=== PATIENT | female | born 1965 | race Caucasian/White ===

== ENCOUNTER 2017-11-21 14:03 | Emergency (ER) | payer OTHER ==
[2017-11-21 14:24] VITALS: BP 134/53
--- NOTE | 2017-11-21 15:18 | UC ---
Throat Pain/Nasal Seven HPI - HPI Summary HPI Summary: 52 yo Wf c/o sire throat on left side with associated LN swelling in the neck since last night. Denies f/c/cough or nasal congestion - History of Current Complaint Chief Complaint: UCGeneralIllness Stated Complaint: THROAT COMPLAINT Time Seen by Provider: 11/21/17 14:35 Hx Obtained From: Patient Onset/Duration: Sudden Onset Severity: Moderate Associated Signs & Symptoms: Positive: Dysphagia. Negative: FB Sensation, Drooling, Wheezing, Hoarseness, Sinus Discomfort, Nasal Discharge, Fever, Vomiting - Allergies/Home Medications Allergies/Adverse Reactions: Allergies Allergy/AdvReac Type Severity Reaction Status Date / Time Penicillins Allergy Severe Rash Verified 11/21/17 14:24 Latex Allergy Unknown Rash Verified 11/21/17 14:24 Cat Hair Extract Allergy Wheezing Verified 11/21/17 14:24 Enviromental Allergy Wheezing Uncoded 11/21/17 14:24 Home Medications: Home Medications Cranberry (Vaccinium Macrocarp [Cranberry] 1 tab PO DAILY 11/21/17 [History Confirmed 11/21/17] Fexofenadine HCl [Allergy Relief] 1 tab PO DAILY 11/21/17 [History Confirmed 01/07] Losartan TAB* [Cozaar TAB*] 50 mg PO DAILY 11/21/17 [History Confirmed 11/21/17] PMH/Surg Hx/FS Hx/Imm Hx - Surgical History Surgical History: Yes Surgery Procedure, Year, and Place: 1975 RT HIP PINNING 4 PINS ( DISLOCATION) [facility]. 1976 RT HIP 4 PIN REMOVALS [facility]. 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 2012 RIGHT CARPAL TUNNEL, [facility]. LEFT THUMB TRIGGER RELEASE. Left ring/middle finger trigger relief. 1993-D&C - Social History Alcohol Use: Rare Substance Use Type: None Smoking Status (MU): Never Smoked Tobacco - Immunization History Most Recent Influenza Vaccination: Fall 2016 Most Recent Pneumonia Vaccination: Fall 2016 Review of Systems Constitutional: Negative Skin: Negative Eyes: Negative ENT: Sore Throat Respiratory: Negative Cardiovascular: Negative Gastrointestinal: Negative Genitourinary: Negative Motor: Negative Neurovascular: Negative Musculoskeletal: Negative Neurological: Negative Psychological: Negative All Other Systems Reviewed And Are Negative: Yes Physical Exam Triage Information Reviewed: Yes Vital Signs: Initial Vital Signs Temp 36.4 C 11/21/17 14:20 Pulse 70 11/21/17 14:20 Resp 18 11/21/17 14:20 BP 134/53 11/21/17 14:20 Pulse Ox 97 11/21/17 14:20 Eye Exam: Normal ENT: Positive: Hearing grossly normal, Pharyngeal erythema, TMs normal, Uvula midline. Negative: Nasal congestion, Nasal drainage, Tonsillar swelling, Tonsillar exudate Dental Exam: Normal Dental: Positive: Cervical Lymphadenopathy Neck: Positive: Tenderness @, Enlarged Nodes @ - on left >right Respiratory Exam: Normal Respiratory: Positive: Lungs clear Cardiovascular Exam: Normal Cardiovascular: Positive: RRR Abdominal Exam: Normal Musculoskeletal Exam: Normal Neurological Exam: Normal Psychological Exam: Normal Skin Exam: Normal Throat Pain/Nasal Course/Dx - Course Assessment/Plan: rapid strep negative, likely viral in etiology, salt gargling BID, supportive tx - Differential Dx/Diagnosis Provider Diagnoses: Pharyngitis Discharge - Discharge Plan Condition: Stable Disposition: HOME Patient Education Materials: Pharyngitis (ED) Referrals: Sharon Galvan MD [Primary Care Provider] - Additional Instructions: as tolerated, supportive tx and salt gargling for viral pharyngitis
== END 2017-11-21 15:30 | disposition home or self-care (01) ==
LOC: UCEAST 14:03
DX: J02.9 Acute pharyngitis, unspecified (principal); Z88.0 Allergy status to penicillin; Z91.040 Latex allergy status; Z91.048 Other nonmedicinal substance allergy status
CPT/HCPCS: 87651; 99211; G0463

== ENCOUNTER 2018-03-13 14:33 | Emergency (ER) | payer OTHER ==
[2018-03-13 14:53] VITALS: BP 130/75
--- NOTE | 2018-03-13 15:34 | UC ---
Cheko Brooks Gabriel, scribed for Yehuda Hou MD on 03/13/18 at 1509 . General HPI - HPI Summary HPI Summary: This patient is a 53 year old F presenting to [facility] accompanied by her with a chief complaint of a strange sensation in her throat that began yesterday. She describes it as feeling tight and is making difficult to eat due to trouble swallowing. Although she reports difficulty swallowing she has no trouble drinking water. Along with this she has been having an intermittent shooting GUERRERO that is near her left occiput. The patient rates the pain 10/10 in severity. Patient reports weakness and fatigue. Patient denies numbness. She states she has had similar symptoms due to her allergies and was recently around smoke and cat hair, both which she is allergic to. Last night the patient began have CP located near her left axilla this pain lasted for several hours but was not accompanied by any nausea, SOB, dizziness, or diaphoresis. She states she used a heating pad that alleviated the pain. - History of Current Complaint Chief Complaint: UCRespiratory Stated Complaint: SORE THROAT PAIN IN BACK OF HEAD PAIN UNDER ARM Time Seen by Provider: 03/13/18 14:48 Hx Obtained From: Patient Onset/Duration: Lasting Days, Still Present Timing: Constant Onset Severity: Severe Current Severity: Severe Pain Intensity: 10 Pain Location at: left occiput and throat Associated Signs & Symptoms: Positive: Other - left axilla pain - Allergy/Home Medications Allergies/Adverse Reactions: Allergies Allergy/AdvReac Type Severity Reaction Status Date / Time latex Allergy Rash Verified 03/13/18 15:02 Penicillins Allergy Rash Verified 03/13/18 15:02 cat Allergy Wheezing Uncoded 03/13/18 15:02 Enviromental Allergy Wheezing Uncoded 03/13/18 14:54 environmental Allergy Wheezing Uncoded 03/13/18 15:02 Home Medications: Home Medications Cetirizine* [ZyrTEC 10 MG TAB*] 03/13/18 [History] PMH/Surg Hx/FS Hx/Imm Hx Cardiovascular History: Hypertension Respiratory History: Asthma - Surgical History Surgical History: Yes Surgery Procedure, Year, and Place: 1975 RT HIP PINNING 4 PINS ( DISLOCATION) [facility]. 1976 RT HIP 4 PIN REMOVALS [facility]. 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 2013 RIGHT CARPAL TUNNEL, [facility]. LEFT THUMB TRIGGER RELEASE. Left ring/middle finger trigger relief. 1993-D&C - Family History Known Family History: Positive: Other - mother had a CVA - Social History Alcohol Use: Rare Substance Use Type: None Smoking Status (MU): Light Every Day Tobacco Smoker - Immunization History Most Recent Influenza Vaccination: Fall 2016 Most Recent Pneumonia Vaccination: Fall 2016 Review of Systems Constitutional: Fatigue ENT: Sore Throat - see HPI Cardiovascular: Chest Pain - near left axilla Neurological: Weakness All Other Systems Reviewed And Are Negative: Yes Physical Exam - Summary Physical Exam Summary: General: well-appearing, no pain distress Skin: warm, color reflects adequate perfusion, dry, no rash Head: normal, there is no TTP over the left occipital nerve Eyes: EOMI, FANNY ENT: normal, Posterior pharynx is benign Neck: supple, nontender, there is mild swelling over the left neck Respiratory: CTA, breath sounds present Cardiovascular: RRR Abdomen: soft, nontender Bowel: present Musculoskeletal: normal, strength/ROM intact Neurological: normal, sensory/motor intact, A&O x3 Psychological: affect/mood appropriate Triage Information Reviewed: Yes Vital Signs: Initial Vital Signs Temp 99.1 F 03/13/18 14:44 Pulse 91 03/13/18 14:44 Resp 18 03/13/18 14:44 BP 130/75 03/13/18 14:44 Pulse Ox 97 03/13/18 14:44 Vital Signs Reviewed: Yes Diagnostics - EKG Cardiac Rate: NL - done at 1514 Cardiac Rhythm: Sinus: Normal - at 86 BPM Ectopy: None ST Segment: Normal Course/Dx - Course Course Of Treatment: Medications reviewed. Allergies noted. I SUSPECT THE PATIENT WILL NEED A MORE EXTENSIVE MEDICAL EVALUATION THAN IS AVAILABLE HERE IN OUR CLINIC. I RECOMMENDED EVALUATION IN THE ED, THE PATIENT AND HER AGREE. THEY DECINE AMBULANCE TRANSPORT, WILL GO BY POV. I DID NOT SEE ANY ISCHEMIC CHANGES ON THE EKG. DISCUSSED WITH THE ED CHARGE NURSE. - Differential Dx - Multi-Symptom Provider Diagnoses: LEFT CHEST, NECK AND HEAD PAIN Discharge - Sign-Out/Discharge Documenting (check all that apply): Discharge/Admit/Transfer - Discharge Plan Condition: Stable Disposition: HOME Patient Education Materials: Chest Pain (ED), Acute Headache (ED), Neck Pain ( ED) Referrals: Sharon Galvan MD [Primary Care Provider] - Additional Instructions: GO DIRECTLY TO THE EMERGENCY DEPARTMENT FOR FURTHER EVALUATION OF YOUR CHEST, HEAD AND NECK PAIN. - Billing Disposition and Condition Condition: STABLE Disposition: HOME The documentation as recorded by the Cheko pnio Gabriel accurately reflects the service I personally performed and the decisions made by me, Yehuda Hou MD.
== END 2018-03-13 15:30 | disposition home or self-care (01) ==
LOC: UCEAST 14:33
DX: R07.9 Chest pain, unspecified (principal); M54.2 Cervicalgia; R51 Headache; F17.200 Nicotine dependence, unspecified, uncomplicated; Z88.0 Allergy status to penicillin
CPT/HCPCS: 93005; 99211; G0463

== ENCOUNTER 2018-03-13 15:55 | Observation (INO) | payer OTHER ==
[2018-03-13] MEDS ORDERED: Ibuprofen TAB* 600 MG PO ONE (17:15)
[2018-03-13] MEDS ORDERED: Albuterol/Ipratropium NEB.SOL* Albuterol 2.5 MG/Ipratropium 0.5 MG 3 ML INH ONE (17:15)
[2018-03-13] MEDS ORDERED: Ondansetron INJ* 2 MG/ML VIAL IV ONE (18:27)
[2018-03-13] MEDS ORDERED: Morphine VIAL* 4 MG/ML VIAL (1 ml vial) IV ONE (18:27)
[2018-03-13] MEDS ORDERED: NS 0.9% 1000 ML* 1,000 ML IV ONE ×2 (18:27→19:37)
[2018-03-13] MEDS ORDERED: Levofloxacin 750 MG IVPREMIX(* 750 MG/150 ML BAG IVPB ONE (18:27)
[2018-03-13 18:52] LABS: ABS Basophils 0.1 10^3/ul (0-0.2); ABS Eosinophils 0 10^3/ul (0-0.6); ABS Lymphocytes 1.4 10^3/ul (1.0-4.8); ABS Monocytes 1.2 10^3/ul (0-0.8); ABS Neutrophils 13.6 10^3/ul (1.5-7.7); ABS Nucleated RBC 0 10^3/ul; Eosinophil % 0.1 % (0-6); Hematocrit 38 % (35-47); Hemoglobin 13.2 g/dl (12.0-16.0); Lymphocyte % 8.6 % (25-47); Mean Corpuscular HGB Conc 35 g/dl (31-36); Mean Corpuscular Hemoglobin 31 pg (27-31); Mean Corpuscular Volume 90 fL (80-97); Mean Platelet Volume 8.4 um3 (7.4-10.4); Nucleated Red Blood Cells % 0; Platelet Count 242 10^3/ul (150-450); Red Blood Count 4.26 10^6/ul (4.0-5.4); Red Cell Distribution Width 12 % (10.5-15); White Blood Count 16.2 10^3/ul (3.5-10.8)
--- NOTE | 2018-03-13 19:14 | RAD ---
Indication: Left-sided chest pain. Comparison is made with previous exam dated November 08, 2015. 2 views of the chest including dual energy PA views demonstrates left basilar atelectasis with suggestion of left basilar airspace disease. This may represent pneumonia and was not present on November 08, 2015. Right lung field is clear. IMPRESSION: There may be early pneumonia in the left base.
[2018-03-13 19:15] LABS: EGFR Non-African American 88.7 (>60)
--- NOTE | 2018-03-13 19:33 | ED ---
Joe Brooks Stephanie, scribed for Elliott Salmeron MD on 03/13/18 at 1740 . HPI Chest Pain - HPI Summary HPI Summary: The pt is a 53 y/o F presenting to the ED with c/o CP that began this morning. The CP is located at the L lateral chest. Symptoms include post-nasal drip and pain at the posterior region of the head. The pt denies cough and sinus pain. The pt denies radiation of the pain. The pt was at convenient care yesterday with concern with throat pain and trouble swallowing. The pt reports recent illness on 03/11/18. - History of Current Complaint Chief Complaint: EDChestPainROMI Time Seen by Provider: 03/13/18 17:30 Hx Obtained From: Patient Onset/Duration: Started Hours Ago, Still Present Timing: Constant Current Severity: Moderate Pain Intensity: 10 Pain Scale Used: 0-10 Numeric Chest Pain Location: Left Lateral Chest Pain Radiates: No Aggravating Factor(s): Nothing Alleviating Factor(s): Nothing Associated Signs and Symptoms: Positive: Chest Pain, Other: - sore throat, dysphagia - Allergy/Home Medications Allergies/Adverse Reactions: Allergies Allergy/AdvReac Type Severity Reaction Status Date / Time latex Allergy Rash Verified 03/13/18 16:13 Penicillins Allergy Rash Verified 03/13/18 16:13 cat Allergy Wheezing Uncoded 03/13/18 16:13 Enviromental Allergy Wheezing Uncoded 03/13/18 16:13 environmental Allergy Wheezing Uncoded 03/13/18 16:13 Home Medications: Home Medications Cranberry Fruit [Cranberry] 400 mg PO DAILY 03/13/18 [History Confirmed 03/13/18 ] PMH/Surg Hx/FS Hx/Imm Hx Cardiovascular History: Reports: Hx Hypertension - DAILY MEDS Denies: Other Cardiovascular Problems/Disorders Respiratory History: Reports: Hx Asthma GI History: Reports: Hx Irritable Bowel - DIARRHEA OFTEN Musculoskeletal History: Reports: Hx Arthritis - RT HIP Sensory History: Reports: Hx Contacts or Glasses - GLASSES INST GIVEN Denies: Hx Hearing Aid Opthamlomology History: Reports: Hx Contacts or Glasses - GLASSES INST GIVEN - Surgical History Surgery Procedure, Year, and Place: 1975 RT HIP PINNING 4 PINS ( DISLOCATION) [facility]. 1976 RT HIP 4 PIN REMOVALS [facility]. 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 2013 RIGHT CARPAL TUNNEL, [facility]. LEFT THUMB TRIGGER RELEASE. Left ring/middle finger trigger relief. 1993-D&C Hx Anesthesia Reactions: Yes - AFTER D/C MUSCLES STIFF AND TIGHT AFTER DISCHARGE COULDN'T MOVE Infectious Disease History: No Infectious Disease History: Denies: Traveled Outside the [place] in Last 30 Days - Family History Known Family History: Positive: Other - mother had a CVA Negative: Renal Disease - Social History Occupation: Unemployed Lives: With Family Alcohol Use: Rare Hx Substance Use: No Substance Use Type: Reports: None Hx Tobacco Use: Yes Smoking Status (MU): Light Every Day Tobacco Smoker Review of Systems ENT: Negative - sinus pain Positive: Sore Throat, Other - post-nasal drip, difficulty swallowing Positive: Chest Pain Negative: Cough Positive: Other - pain at the posterior region of the head All Other Systems Reviewed And Are Negative: Yes Physical Exam - Summary Physical Exam Summary: Appearance: Well appearing, no pain distress Skin: warm, dry, reflects adequate perfusion Head/face: lips dry Eyes: EOMI, FANNY ENT: mucus membranes tacky Neck: supple, non-tender Respiratory: diminished lung sounds with crackles in L base Cardiovascular: RRR, pulses symmetrical Abdomen: non-tender, soft Bowel Sounds: present Musculoskeletal: normal, strength/ROM intact Neuro: normal, sensory motor intact, A&Ox3 Triage Information Reviewed: Yes Vital Signs On Initial Exam: Initial Vitals Temp Pulse Resp BP Pulse Ox 100.9 F 91 18 140/55 96 03/13/18 16:08 03/13/18 16:08 03/13/18 16:08 03/13/18 16:08 03/13/18 16:08 Vital Signs Reviewed: Yes Diagnostics - Vital Signs Vital Signs Temp Pulse Resp BP Pulse Ox 03/13/18 16:08 100.9 F 91 18 140/55 96 - Laboratory Lab Results: Lab Results 03/13/18 03/13/18 03/13/18 Range/Units 18:41 18:41 18:41 WBC 16.2 H (3.5-10.8) 10^3/ul RBC 4.26 (4.0-5.4) 10^6/ul Hgb 13.2 (12.0-16.0) g/dl Hct 38 (35-47) % MCV 90 (80-97) fL MCH 31 (27-31) pg MCHC 35 (31-36) g/dl RDW 12 (10.5-15) % Plt Count 242 (150-450) 10^3/ul MPV 8.4 (7.4-10.4) um3 Neut % (Auto) 83.9 H (38-83) % Lymph % (Auto) 8.6 L (25-47) % Hemphill % (Auto) 7.1 H (0-7) % Eos % (Auto) 0.1 (0-6) % Baso % (Auto) 0.3 (0-2) % Absolute Neuts (auto) 13.6 H (1.5-7.7) 10^3/ul Absolute Lymphs (auto) 1.4 (1.0-4.8) 10^3/ul Absolute Monos (auto) 1.2 H (0-0.8) 10^3/ul Absolute Eos (auto) 0 (0-0.6) 10^3/ul Absolute Basos (auto) 0.1 (0-0.2) 10^3/ul Absolute Nucleated RBC 0 10^3/ul Nucleated RBC % 0 Sodium 136 L (139-145) mmol/L Potassium 3.6 (3.5-5.0) mmol/L Chloride 98 L (101-111) mmol/L Carbon Dioxide 25 (22-32) mmol/L Anion Gap 13 H (2-11) mmol/L BUN 17 (6-24) mg/dL Creatinine 0.69 (0.51-0.95) mg/dL Est GFR ( Amer) 114.0 (>60) Est GFR (Non-Af Amer) 88.7 (>60) BUN/Creatinine Ratio 24.6 H (8-20) Glucose 166 H (70-100) mg/dL Lactic Acid 1.9 (0.5-2.0) mmol/L Calcium 9.8 (8.6-10.3) mg/dL Total Bilirubin 0.90 (0.2-1.0) mg/dL AST 14 (13-39) U/L ALT 20 (7-52) U/L Alkaline Phosphatase 92 (34-104) U/L Total Protein 7.8 (6.4-8.9) g/dL Albumin 4.3 (3.2-5.2) g/dL Globulin 3.5 (2-4) g/dL Albumin/Globulin Ratio 1.2 (1-3) Result Diagrams: 03/13/18 18:41 03/13/18 18:41 Lab Statement: Any lab studies that have been ordered have been reviewed, and results considered in the medical decision making process. - Radiology CXR Xray Interpretation: Positive (See Comments) Radiology Interpretation Completed By: ED Physician - L basilar PNA - EKG 15:54 Cardiac Rate: NL EKG Rhythm: Sinus Rhythm - [address] Segment: Normal Ectopy: None Re-Evaluation - Re-Evaluation First Eval Re-Evaluation Time: 18:26 Change: Unchanged - 78% when ambulating, HR 130 Chest Pain Course/Dx - Course Course Of Treatment: Patient with crackles in the left base, left-sided chest pain and hypoxia. She was walked about the ER after confirming x-ray showing left basilar infiltrate. During the walking oxygen saturation study she dropped to saturation of 78%. She was hydrated, given IV antibiotics and admission was planned. Ordered blood cell count is elevated but lactate is not. Admit For further. - Chest Pain Differential Diagnosis/HQI/PQRI: Acute TN, Angina, GI Disease, Lower Respiratory Infection, Pulmonary Edema - Diagnoses Provider Diagnoses: Hypoxia, Left lower lobe pneumonia - Provider Notifications Discussed Care Of Patient With: Saeed Jackson - will evaluate in the ER and admit Discharge - Sign-Out/Discharge Documenting (check all that apply): Discharge/Admit/Transfer - admit - Discharge Plan Condition: Fair Disposition: ADMITTED TO [facility] Referrals: Sharon Galvan MD [Primary Care Provider] - - Billing Disposition and Condition Condition: FAIR Disposition[place] [facility] The documentation as recorded by the Joe pino Stephanie accurately reflects the service I personally performed and the decisions made by , Elliott Salmeron MD.
[2018-03-13] MEDS ORDERED: Albuterol 2.5 MG/3 ML NEB.SOL* (0.083%) INH PRN (19:37)
[2018-03-13] MEDS ORDERED: NS 0.9% 1000 ML* 1,000 ML IV SCH (19:45)
[2018-03-13] MEDS ORDERED: Levofloxacin 750 MG IVPREMIX(* 0 MG/0 ML BAG ONE (19:48)
[2018-03-13] MEDS ORDERED: Iohexol 350* (CONTRAST) 500 ML MDV IV ONE (19:50)
--- NOTE | 2018-03-13 20:40 | RAD ---
Indication: Shortness of breath, chest pain. Contrast: Administered 65.3 ml of OMNIPAQUE 350 mg/ml CTA of the chest was performed after IV contrast administration. Coronal and sagittal reconstructed images were obtained. Pulmonary arterial tree is well opacified. There are no filling defects present to suggest pulmonary emboli. Thoracic aorta demonstrates no aneurysmal dilatation or aortic dissection. There are multiple pulmonary nodules throughout both lung bloom of varying size. Findings are suspicious for metastatic disease. There is left lower lobe consolidation noted. There is a mass adjacent to the left lobe of the thyroid. Thyroid carcinoma is not excluded. No mediastinal or hilar adenopathy is noted. No pericardial effusion is noted. The visualized abdominal organs are unremarkable. The bony structures are unremarkable. IMPRESSION: Innumerable pulmonary nodules consistent with pulmonary metastatic disease. No definite evidence of pulmonary embolus is noted. There is ill-defined mass adjacent to the left lobe of the thyroid. This measures up to 2.5 cm.
[2018-03-13] MEDS: Mometasone/Formoter 200/5 MDI INH SCH (21:13)
--- NOTE | 2018-03-13 21:16 | HP ---
CC: Dr. Galvan* HISTORY AND PHYSICAL: DATE OF ADMISSION: 03/13/18 PRIMARY CARE PROVIDER: Dr. Galvan. ATTENDING PHYSICIAN WHILE IN THE HOSPITAL: Darvin Fernandez MD* (report dictated by Saeed Jackson NP). CHIEF COMPLAINT: 1. Chest pain. 2. Shortness of breath. HISTORY OF PRESENT ILLNESS: Mrs. You is a 53-year-old female patient. She carries a history of seasonal allergies. She carries a history of hypertension , also carries a history of asthma and arthritis. She comes into the ED today. She states that last couple of days, the patient has been having difficulty particularly in the last 24 hours with pain in her left chest, worse with taking a deep breath. She states it has been a sharp, stabbing pain, it has been constant. She states she has been splinting. She has also noted that her throat has been sore. It hurt to swallow yesterday. She also admitted to having low grade fever here today. She initially went to Urgent Care, said her throat feels much better today. It is also no longer sore, but this chest pain persisted. She is having pain in the back of her head. She denied any nausea or vomiting. She denied having any diarrhea. She said she initially went to Urgent Care and she was transferred to [facility] for further evaluation due to the chest pain. She was evaluated here. Ultimately, it was found that she was tachycardic, she was hypoxic with ambulation, and there was a concern for pneumonia. So, we were asked to evaluate for admission based on chest x-ray and her elevated WBC. PAST MEDICAL HISTORY: Significant for: 1. Hypertension. 2. Asthma. 3. Seasonal allergies. 4. Arthritis. PAST SURGICAL HISTORY: 1. She has had trigger finger x3. 2. She has had carpal tunnel. HOME MEDICATIONS: Include: 1. Cranberry 400 mg p.o. daily. 2. Vitamin D3 1000 units p.o. daily. 3. Zyrtec 10 mg daily. 4. Cozaar 50 mg daily. 5. Bisoprolol hydrochlorothiazide 1 tablet p.o. daily. ALLERGIES TO MEDICATIONS: Include LATEX, PENICILLIN, CATS, and ENVIRONMENTAL. FAMILY HISTORY: Her mother was diabetic. Father of suicide. SOCIAL HISTORY: She does not smoke. She does not drink. Surrogate decision maker is her . REVIEW OF SYSTEMS: There is a documented fever here. She did not have any at home. She denied having any significant weight change. There was no double vision. She denies having any ear discharge. There is no rhinorrhea. There was a sore throat, but is now resolving. She states it feels much better. She does admit to having chest pain. She did admit to having dyspnea. She is getting short of breath because she cannot take a deep breath. She denies having any abdominal pain. There was no nausea. She denies having any vomiting. No dysuria or frequency. There was no seizure, no loss of consciousness, no pruritus, and no skin ulcerations. Review of 14 systems completed and all others negative. PHYSICAL EXAMINATION GENERAL: At this time, Mrs. You is a 53-year-old female patient. She is sitting in the ED stretcher. She does not appear to be in any acute distress. VITAL SIGNS: Blood pressure 117/65, pulse 100, respirations 20, O2 sat 98%, temperature initially was 100.9. HEENT: Head: Atraumatic, normocephalic. Eyes: EOMs are intact. Sclerae anicteric and not pale. Throat: Oral mucosa appears to be moist. No oropharyngeal erythema. NECK: Supple. LUNGS: She had crackles in the left base. She had equal diaphragmatic expansion. HEART: Sounds S1, S2. She is tachycardic. No murmurs, rubs, or gallops. ABDOMEN: Soft, flat, nontender. Bowel sounds were present. EXTREMITIES: Pulses were 2+ throughout. Moving all 4 extremities with 5/5 strength. NEUROLOGICAL: The patient is awake, alert, oriented x3. Tongue midline. Calender Operator were equal. No gross focal deficits. SKIN: Intact. DIAGNOSTIC STUDIES/LAB DATA: WBC of 16.2, RBC of 4.26, hemoglobin 13.2, hematocrit of 38, platelet count 142. Sodium was 139, potassium is 3.6, chloride was 98, bicarb was 25, BUN 17, creatinine of 0.69, glucose 166, lactate 1.9, calcium 9.8, total bili 0.9. AST 14, ALT 20, alk phos 92, albumin of 4.3. Chest x-ray showed early pneumonia in the left base. When I reviewed, it does appear that she has an infiltrate started there. EKG shows a normal sinus rhythm, rate of 88, no ST elevations or T-wave inversions were noted. Old medical records were reviewed. ASSESSMENT AND PLAN: Mrs. You is a 53-year-old female patient coming in to the ED today with complaints of sore throat. She states she has been aching all over. She had a fever today. She said she had chest pain, worse with taking a deep breath. She could not really get a deep breath because she has sharp, stabbing chest pain. On evaluation, found to be septic with what appears to be pneumonia. We were asked to evaluate for admission. She will be admitted under inpatient status for: 1. Sepsis secondary to pneumonia. At this point, she is going to get 2 L of fluid here in the ED. Blood cultures have been sent and ordered by Dr. Salmeron. Levaquin has been started. We will continue with this. We will continue with IV hydration. I am also going to check legionella antigen, Strep pneumo antigen, try to get sputum culture if possible, get a flu swab, and we will continue to follow. Because she was so hypoxic with ambulation, I will get a CT of the chest to rule out pulmonary embolism. I am also going to put her on p.r.n. nebs. She is not wheezing, but she has a history of asthma, we will continue to follow. 2. Asthma. It appears to be stable, but I will put her on Dulera and p.r.n. albuterol. 3. Hypertension in the setting of the acute illness. I will hold her hydrochlorothiazide and the Cozaar. We will continue her on her beta rayna. 4. History of arthritis. Continue her with p.r.n. Tylenol and she follows with her primary. 5. Seasonal allergies. Again, at this point, not an active issue. She knows to avoid triggers. 6. DVT prophylaxis. High risk, placed on heparin subcu. 7. Code status. Full code. 8. Fluids, electrolytes, and nutrition: She can have a regular diet. TIME SPENT: Time spent on admission was 60 minutes, greater than half the time was spent [id number] with the patient obtaining my history and physical, other half of the time was spent going over the plan of care with the patient and implementing the plan of care. I did discuss the plan of care with my attending, Dr. Fernandez, he is in agreement. SAEED JACKSON, CIRCUIT MANAGER [id number]/[facility] #: [id number] BHARAT
[2018-03-13] MEDS: Acetaminophen TAB* 325 MG PO PRN (22:31)
[2018-03-13] MEDS: Heparin VIAL(*) 5000 UNITS/ML VIAL (FIVE THOUSAND) SUBCUT SCH (22:32)
[2018-03-14] MEDS: Acetaminophen TAB* 325 MG PO PRN (03:21)
[2018-03-14] MEDS: Heparin VIAL(*) 5000 UNITS/ML VIAL (FIVE THOUSAND) SUBCUT SCH (05:56)
[2018-03-14 07:09] LABS: ABS Basophils 0.1 10^3/ul (0-0.2); ABS Eosinophils 0 10^3/ul (0-0.6); ABS Lymphocytes 1.3 10^3/ul (1.0-4.8); ABS Monocytes 0.9 10^3/ul (0-0.8); ABS Neutrophils 7.4 10^3/ul (1.5-7.7); ABS Nucleated RBC 0 10^3/ul; Eosinophil % 0.3 % (0-6); Hematocrit 34 % (35-47); Hemoglobin 11.8 g/dl (12.0-16.0); Lymphocyte % 13.2 % (25-47); Mean Corpuscular HGB Conc 34 g/dl (31-36); Mean Corpuscular Hemoglobin 31 pg (27-31); Mean Corpuscular Volume 91 fL (80-97); Mean Platelet Volume 8.1 um3 (7.4-10.4); Nucleated Red Blood Cells % 0; Platelet Count 213 10^3/ul (150-450); Red Blood Count 3.78 10^6/ul (4.0-5.4); Red Cell Distribution Width 12 % (10.5-15); White Blood Count 9.6 10^3/ul (3.5-10.8)
[2018-03-14 07:19] LABS: INR 1.18 (0.77-1.02)
[2018-03-14 07:23] LABS: EGFR Non-African American 112.8 (>60)
[2018-03-14 07:32] VITALS: BP 134/50
--- NOTE | 2018-03-14 07:55 | PN ---
Subjective Date of Service: 03/14/18 Interval History: PLeuritic pain L anterior chest x 1-2 days. Some sore throat, nocough. She did not take her temp at home No sweats or chills. Objective Active Medications: Acetaminophen (Tylenol Tab*) 650 mg PO Q4H PRN PRN Reason: FEVER/PAIN Last Admin: 03/14/18 03:21 Dose: 650 mg Albuterol (Ventolin 2.5 Mg/3 Ml Neb.Briana*) 2.5 mg INH Q2H PRN PRN Reason: SOB/WHEEZING Bisoprolol Fumarate (Zebeta Tab*) 5 mg PO DAILY [facility] Heparin Sodium (Porcine) (Heparin Vial(*)) 5,000 units SUBCUT Q8HR [facility] Last Admin: 03/14/18 05:56 Dose: 5,000 units Levofloxacin/Dextrose (Levaquin 750 Mg Ivpremix(*)) 750 mg in 150 mls @ 100 mls /hr IVPB Q24H [facility] Mometasone Furoate/Formoterol Fumar (Dulera 200/5 Mdi*) 2 puff INH BID [facility] Last Admin: 03/13/18 21:13 Dose: Not Given Vital Signs - 8 hr 03/14/18 03/14/18 03/14/18 02:38 02:53 07:14 Temperature 97.9 F 98.0 F Pulse Rate 84 84 80 Respiratory 16 16 16 Rate Blood Pressure 140/56 134/50 (mmHg) O2 Sat by Pulse 96 93 94 Oximetry 03/14/18 07:32 Temperature Pulse Rate Respiratory 16 Rate Blood Pressure (mmHg) O2 Sat by Pulse Oximetry Oxygen Devices in Use Now: None Appearance: Alert, partly up in bed. Holding hot pack on her L chest. In fair spirits. Eyes: No Scleral Icterus Neck: NL Appearance and Movements; NL JVP, No Thyroid Enlargement, Masses Respiratory: Symmetrical Chest Expansion and Respiratory Effort, Clear to Auscultation, Clear to Percussion Cardiovascular: NL Sounds; No Murmurs; No JVD, RRR, No Edema, - Extremities: No Edema, No Clubbing, Cyanosis, - Skin: No Rash or Ulcers, No Nodules or Sclerosis, - Neurological: Alert and Oriented x 3, NL Sensation Result Diagrams: 03/14/18 06:58 03/14/18 06:58 Additional Lab and Data: Lab Results 03/13/18 03/13/18 03/13/18 Range/Units 18:41 18:41 18:41 WBC 16.2 H (3.5-10.8) 10^3/ul RBC 4.26 (4.0-5.4) 10^6/ul Hgb 13.2 (12.0-16.0) g/dl Hct 38 (35-47) % MCV 90 (80-97) fL MCH 31 (27-31) pg MCHC 35 (31-36) g/dl RDW 12 (10.5-15) % Plt Count 242 (150-450) 10^3/ul MPV 8.4 (7.4-10.4) um3 Neut % (Auto) 83.9 H (38-83) % Lymph % (Auto) 8.6 L (25-47) % [place] % (Auto) 7.1 H (0-7) % Eos % (Auto) 0.1 (0-6) % Baso % (Auto) 0.3 (0-2) % Absolute Neuts (auto) 13.6 H (1.5-7.7) 10^3/ul Absolute Lymphs (auto) 1.4 (1.0-4.8) 10^3/ul Absolute Monos (auto) 1.2 H (0-0.8) 10^3/ul Absolute Eos (auto) 0 (0-0.6) 10^3/ul Absolute Basos (auto) 0.1 (0-0.2) 10^3/ul Absolute Nucleated RBC 0 10^3/ul Nucleated RBC % 0 Sodium 136 L (139-145) mmol/L Potassium 3.6 (3.5-5.0) mmol/L Chloride 98 L (101-111) mmol/L Carbon Dioxide 25 (22-32) mmol/L Anion Gap 13 H (2-11) mmol/L BUN 17 (6-24) mg/dL Creatinine 0.69 (0.51-0.95) mg/dL Est GFR ( Amer) 114.0 (>60) Est GFR (Non-Af Amer) 88.7 (>60) BUN/Creatinine Ratio 24.6 H (8-20) Glucose 166 H (70-100) mg/dL Lactic Acid 1.9 (0.5-2.0) mmol/L Calcium 9.8 (8.6-10.3) mg/dL Total Bilirubin 0.90 (0.2-1.0) mg/dL AST 14 (13-39) U/L ALT 20 (7-52) U/L Alkaline Phosphatase 92 (34-104) U/L Total Protein 7.8 (6.4-8.9) g/dL Albumin 4.3 (3.2-5.2) g/dL Globulin 3.5 (2-4) g/dL Albumin/Globulin Ratio 1.2 (1-3) Microbiology and Other Data: Microbiology 03/13/18 19:58 Influenza Types A,B Antigen (NEAL) - Final Nasal Specimen received for Influenza A/B Molecular testing Assess/Plan/Problems-Billing Assessment: - Patient Problems (1) Febrile illness Status: Acute Code(s): R50.9 - FEVER, UNSPECIFIED SNOMED Code(s): 272964228 Comment: ? concurrent infectious process and other disease causing para- thyroid mass and multiple pulmonay nodules. CRP, calcitonin add on. Continue levofloxacin. (2) Asthma Status: Acute Code(s): J45.909 - UNSPECIFIED ASTHMA, UNCOMPLICATED SNOMED Code(s): 120209433 Comment: Mometasone/formoterol, PRN albuterol/ipratropium. (3) HTN (hypertension) Status: Acute Code(s): I10 - ESSENTIAL (PRIMARY) HYPERTENSION SNOMED Code(s) : 65806699 Comment: Continue bisoprolol, hold losartan, thiazide. (4) Pulmonary nodules Status: Acute Code(s): R91.8 - OTHER NONSPECIFIC ABNORMAL FINDING OF LUNG FIELD SNOMED Code(s): 730953054 Comment: FNA lung scheduled for 03/15. Dr. Finch will follow pt as outpt. (5) Hyperthyroidism Status: Acute Code(s): E05.90 - THYROTOXICOSIS, UNSP WITHOUT THYROTOXIC CRISIS OR STORM SNOMED Code(s): 98710853 Comment: TSH 0, free T4 elevated. US thyroid and FNA thryoid 03/15. Dr. Moise will see as outpt.
[2018-03-14] MEDS: Mometasone/Formoter 200/5 MDI INH SCH (07:56)
[2018-03-14] MEDS ORDERED: oxyCODONE/Acetamin 5/325 MG* TAB PO PRN (07:58)
[2018-03-14] MEDS ORDERED: Bisoprolol TAB* 5 MG PO SCH (09:00)
--- NOTE | 2018-03-14 10:10 | CONSULT ---
Consultation - Reason for Consultation Reason for Consultation: lung masses Ordering Provider: Atilio Kaur Chief Complaint: sore throat and chest pain History of Present Illness: 53 yo F w PMHx of obesity and asthma presenting with atypical left sided chest pain and a sore throat and found to have a left neck mass and multiple lung nodules. Sindhu reports that she has been under an extreme amount of stress recently as her mother suddenly of a massive stroke. She has been having daily headaches, but has been crying daily. a few days prior to admission she noted a discomfort on swallowing, like something was pushing on her throat. The day of admission she developed left breast and chest pain and so went to urgent care where she was referred to the ER. She had a CXR followed by a CTA, which I have personally reviewed, showing innumerable pulmonary nodules and a large mass adjacent to (or contiguous with) the left lobe of the thyroid. Her TSH is undetectable. She denies fevers, sweats, flushing, nausea or vomiting. She feels a pressure in her throat when she swallows. She has had 5 lb weight loss, but again is dealing with the stress of her mother's recent . She denies diplopia or focal weakness. She denies hair loss. Allergies/Medications Medication: Acetaminophen (Tylenol Tab*) 650 mg PO Q4H PRN PRN Reason: FEVER/PAIN Last Admin: 03/14/18 03:21 Dose: 650 mg Albuterol (Ventolin 2.5 Mg/3 Ml Neb.Briana*) 2.5 mg INH Q2H PRN PRN Reason: SOB/WHEEZING Bisoprolol Fumarate (Zebeta Tab*) 5 mg PO DAILY ON LICENSE OF [facility] Last Admin: 03/14/18 08:50 Dose: Not Given Heparin Sodium (Porcine) (Heparin Vial(*)) 5,000 units SUBCUT Q8HR ON LICENSE OF [facility] Last Admin: 03/14/18 05:56 Dose: 5,000 units Levofloxacin/Dextrose (Levaquin 750 Mg Ivpremix(*)) 750 mg in 150 mls @ 100 mls /hr IVPB Q24H ON LICENSE OF [facility] Mometasone Furoate/Formoterol Fumar (Dulera 200/5 Mdi*) 2 puff INH BID ON LICENSE OF [facility] Last Admin: 03/14/18 07:56 Dose: Not Given Oxycodone/Acetaminophen (Percocet 5/325 Tab*) 1 tab PO Q4H PRN PRN Reason: PAIN Allergies/Adverse Reactions: Allergies Allergy/AdvReac Type Severity Reaction Status Date / Time latex Allergy Rash Verified 03/13/18 16:13 Penicillins Allergy Rash Verified 03/13/18 16:13 cat Allergy Wheezing Uncoded 03/13/18 16:13 Enviromental Allergy Wheezing Uncoded 03/13/18 16:13 environmental Allergy Wheezing Uncoded 03/13/18 16:13 History - Past Medical History Other History: HTN. asthma. arthritis. carpal tunnel surgery. trigger finger release x 3 - Family History Other Family History: mother breast cancer, recently massive CVA - Social History Hx Alcohol Use: No Hx Tobacco Use: No Marital Status: Review of Systems - Review of Systems General Comments: extensive ROS as per HPI Physical Exam - Physical Exam Physical Examination: Vital Signs Temp Pulse Resp BP Pulse Ox 98.0 F 80 16 134/50 94 03/14/18 07:14 03/14/18 07:14 03/14/18 07:32 03/14/18 07:14 03/14/18 07:14 perr eomi fullness with mild nodularity left side of neck op moist crackles right base s1 s2 nl soft nt +bs no le edema no LG A+O x 3 nonfocal neurological exam Results - Lab Results Lab Results: 03/13/18 03/14/18 03/14/18 20:07 06:58 06:58 WBC 9.6 RBC 3.78 L Hgb 11.8 L Hct 34 L MCV 91 MCH 31 MCHC 34 RDW 12 Plt Count 213 MPV 8.1 Neut % (Auto) 76.9 Lymph % (Auto) 13.2 L [place] % (Auto) 9.0 H Eos % (Auto) 0.3 Baso % (Auto) 0.6 Absolute Neuts (auto) 7.4 Absolute Lymphs (auto) 1.3 Absolute Monos (auto) 0.9 H Absolute Eos (auto) 0 Absolute Basos (auto) 0.1 Absolute Nucleated RBC 0 Nucleated RBC % 0 INR (Anticoag Therapy) 1.18 H Sodium Potassium Chloride Carbon Dioxide Anion Gap BUN Creatinine Est GFR ( Amer) Est GFR (Non-Af Amer) BUN/Creatinine Ratio Glucose Calcium C-Reactive Protein Procalcitonin TSH Influenza A (Rapid) Negative Influenza B (Rapid) Negative 03/14/18 03/14/18 06:58 06:58 WBC RBC Hgb Hct MCV MCH MCHC RDW Plt Count MPV Neut % (Auto) Lymph % (Auto) [place] % (Auto) Eos % (Auto) Baso % (Auto) Absolute Neuts (auto) Absolute Lymphs (auto) Absolute Monos (auto) Absolute Eos (auto) Absolute Basos (auto) Absolute Nucleated RBC Nucleated RBC % INR (Anticoag Therapy) Sodium 141 Potassium 3.9 Chloride 108 Carbon Dioxide 26 Anion Gap 7 BUN 13 Creatinine 0.56 Est GFR ( Amer) 145.1 Est GFR (Non-Af Amer) 112.8 BUN/Creatinine Ratio 23.2 H Glucose 139 H Calcium 9.1 C-Reactive Protein 141.95 H Procalcitonin < 0.1 TSH 0.00 L Influenza A (Rapid) Influenza B (Rapid) Assessment and Plan Impression: 53 yo F presenting with throat pressure and chest pain and found to have a large left neck mass (?thyroid) TSH of 0, and innumerable lung nodules. I am not convinced that these are part and parcel of the same process, vs. a toxic thyroid and a second pulmonary process. I have discussed the case at length with Dr. Moise and Dr. kaur. Radiology is not able to perform the biopsy today , and as she is very clinically stable we will discharge her with biopsy of her thyroid and a lung nodule tomorrow (per Henok Bains in Radiology this will be possible). She will follow up with me next at my main campus office at 4:20 pm, and should see Dr. Moise in 1-2 weeks. I have ordered a full thyroid panel and antibiodies at her request. She can not have a nuclear scan for ~6 weeks because of the iodinated contrast given yesterday. In terms of her headaches, they do seem stress related but it would be reasonable to do imaging. She is refusing a MRI and so I will start with a noncontrast head CT.
[2018-03-14] MEDS ORDERED: HYDROcodone/ACETAMIN 5-325 MG* 1 TAB PO PRN (11:14)
--- NOTE | 2018-03-14 11:27 | PN ---
"Progress Note - Progress Note Date of Service: 03/14/18 Note: Search Terms: marga alvarado, 1965 Search Date: 03/14/2018 11:27:00 AM The Drug Utilization Report below displays all of the controlled substance prescriptions, if any, that your patient has filled in the last twelve months. The information displayed on this report is compiled from pharmacy submissions to the Department, and accurately reflects the information as submitted by the pharmacies. This report was requested by: Atilio Kaur | Reference #: [id number] There are no results for the search terms that you entered."
--- NOTE | 2018-03-14 16:55 | DS ---
CC: Dr. Galvan; Dr. Finch DISCHARGE SUMMARY: DATE OF ADMISSION: 03/13/18 DATE OF DISCHARGE: 03/14/18 HOSPITAL COURSE: This 53-year-old woman presented with left-sided anterior chest pain. She also had a sore throat. All these symptoms were present for the last 1 to 2 days. She did not have a cough or shortness of breath. Otherwise, she has been in good health. Chest x-ray showed some abnormalities, which prompted a CTA of the chest, this showed many pulmonary nodules and an abnormality of the thyroid. Her TSH was added on and came back as 0. The patient was seen in consultation by Dr. Finch. Further thyroid test has been added on. Thyroid peroxidase antibody was 4.70, which is not flagged as abnormal. Free T4 was high at 1.49. Total T3 was 1.48. The patient will have an ultrasound of the thyroid, a biopsy of the thyroid, and a biopsy of a pulmonary nodule, all tomorrow morning in the x-ray department. She will follow up with Dr. Finch and Dr. Galvan. FINAL DIAGNOSES: 1. Pulmonary nodules. 2. Thyroid abnormality and abnormal thyroid function test suggestive of hyperthyroidism. 3. Hypertension. 4. Asthma. DISCHARGE MEDICATIONS: 1. Levofloxacin 500 mg daily at 6 p.m. for 6 days. 2. Hydrocodone and acetaminophen 5/325, 1 every 4 hours p.r.n. 3. Vitamin D3, 1000 units daily. 4. Bisoprolol and hydrochlorothiazide 5/6.25, 1 daily. 5. Cetirizine 10 mg daily. 6. Cranberry fruit 400 mg daily. Losartan has been discontinued. [id number]/[facility] #: [id number] [facility]
[2018-03-14] MEDS ORDERED: Levofloxacin TAB* 500 MG PO SCH (18:00)
[2018-03-14] MEDS ORDERED: Levofloxacin 750 MG IVPREMIX(* 750 MG/150 ML BAG IVPB SCH (18:00)
== END 2018-03-14 14:05 | disposition home or self-care (01) ==
LOC: ED 15:55 → INTOOBSV 19:53 → MED 19:53
PROVIDERS: ADMIT Hospitalist; ATTEND Internal Medicine
DX: A41.9 Sepsis, unspecified organism (principal); J18.9 Pneumonia, unspecified organism; R91.1 Solitary pulmonary nodule; J45.909 Unspecified asthma, uncomplicated; I10 Essential (primary) hypertension; R94.6 Abnormal results of thyroid function studies; M19.90 Unspecified osteoarthritis, unspecified site; Z79.899 Other long term (current) drug therapy; Z88.2 Allergy status to sulfonamides; Z88.8 Allergy status to other drugs, medicaments and biological substances
CPT/HCPCS: 36415; 71046; 71275; 80048; 80053; 83036; 83605; 84145; 84436; 84439; 84443; 84445; 84479; 84484; 85025; 85610; 86140; 86376; 87040; 87502; 87899; 93005; 94640; 96365; 96372; 96375; 99204; 99211; 99223; 99285; A9270-GY; G0378; G0463; J1644; J2270; J2405; Q9967

== ENCOUNTER 2018-04-27 06:58 | Observation (INO) | payer OTHER ==
--- NOTE | 2018-04-24 20:30 | HP ---
CC: Dr. Sharon Galvan; Dr. Moise * PREOPERATIVE HISTORY AND PHYSICAL: DATE OF ADMISSION/SURGERY: 04/27/18 This patient is scheduled for same-day surgery with overnight observation by Dr. Morgan on 04/27/18. DATE OF PREOPERATIVE HISTORY AND PHYSICAL EXAMINATION: 04/24/18. ATTENDING SURGEON: Dr. Tawana Morgan * (dictated by Brooke Ricks NP) CHIEF COMPLAINT: Thyroid cancer. HISTORY OF PRESENT ILLNESS: The patient is a 53-year-old female recently evaluated by Dr. Morgan for thyroid cancer. The patient reports that she was having a variety of symptoms including chest pain that led her to the [facility] where she was referred to the [facility] Emergency Room where she ultimately ended up with a CTA of the chest to rule out pulmonary embolus. This did not show pulmonary embolus, but did show thyroid nodules with probable pulmonary metastases. She underwent biopsies of 2 thyroid nodules that were suspicious on the left side and both showed thyroid papillary cancer. She also had a biopsy of a lung nodule, which was positive for metastases. Dr. Morgan has recommended total bilateral thyroidectomy and has described the nature of the surgical procedure, the rationale for the procedure, the relevant risks and benefits, and today I reviewed the overnight stay in the hospital and the postoperative care and recovery. The patient has had a chance to ask questions and stated that she understands the information and is satisfied with the answers given to her questions. She will sign surgical consent on the day of surgery. She reports symptoms including weight loss, night sweats, irritability, and frequent diarrhea that she had previously attributed to depression after her mother in January 2018, but she has now been diagnosed with Graves' disease. She denies a family history of endocrinopathy and she has never had radiation to the chest. She denies any changes in her voice, but does complain of sore throat and some difficulty swallowing. PAST MEDICAL HISTORY: Significant for hypertension; pneumonia in February 2018, treated with Levaquin; asthma, with no recent flare-ups; arthritis, specifically with degenerative joint disease of the right hip. PAST SURGICAL HISTORY: D and C in 1993, trigger finger release, carpal tunnel release. MEDICATIONS: 1. Cetirizine 10 mg p.o. daily. 2. Bisoprolol fumarate/hydrochlorothiazide 2.5/6.25 p.o. daily. 3. Losartan 50 mg p.o. daily. 4. Ventolin inhaler 2 puffs four times a day p.r.n. 5. Vitamin D3 1000 International Units daily. 6. Cranberry extract 500 mg p.o. daily. ALLERGIES: PENICILLIN causes rash, LATEX causes rash. STRAWBERRIES and many other FRESH FRUITS have caused anaphylaxis. 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 She rarely drinks alcohol and denies the use of other substances. FAMILY HISTORY: No known endocrinopathies; the patient's mother in January 2018 with stroke at age 76. She was also diabetic and had heart disease and breast cancer. The patient's biological father committed suicide at age 29. REVIEW OF SYSTEMS: Constitutional: No fevers or chills. She has experienced some weight loss and denies excessive fatigue. Endocrine: No diabetes. Thyroid disease as described in history of present illness. Hematologic: No easy bruising or bleeding. No previous blood transfusions. Respiratory: No chronic cough or dyspnea on exertion. Cardiovascular: Chest pain as described in history of present illness. EKG, 03/13/18, revealed normal sinus rhythm without ST changes. Gastrointestinal: She reports diarrhea, no nausea or vomiting. No heartburn. Genitourinary: No dysuria. Musculoskeletal: Chronic right hip pain related to osteoarthritis. Neurologic: No headache or blurred vision. General: No previous anesthesia complications. No history of deep vein thrombosis or pulmonary embolism. No bleeding tendencies. PHYSICAL EXAMINATION GENERAL SURVEY: The patient is a 53-year-old female, well developed, well nourished, in no acute distress. VITAL SIGNS: Height 62 inches, weight 146 pounds, body mass index 26.7. Blood pressure 122/74, pulse 66 and regular, respiratory rate 16, temperature 97.8 tympanic. HEENT: Benign. NECK: Visibly enlarged and tender on the left side. Palpation of the movement of the thyroid reveals no specific findings. Thyroid gland does seem diffusely enlarged. No cervical lymphadenopathy. LUNGS: Breath sounds bilaterally clear and equal. HEART: Regular rate and rhythm. No murmurs or rubs appreciated. ABDOMEN: Active bowel sounds. Soft, nondistended, nontender throughout. No obvious masses, organomegaly, or evidence of ventral hernia. PELVIC: Exam deferred. RECTAL: Exam deferred. EXTREMITIES: Warm without edema or skin ulceration. NEUROLOGIC: Alert and oriented x3. Steady gait. SKIN: Warm, dry, intact. IMPRESSION: Malignant neoplasm of thyroid gland. PLAN: Same-day surgery with overnight admission to Dr. Morgan's service on 04/27/18, for total bilateral thyroidectomy. GINA RICKS, [employer] MANAGER [id number]/[facility] #: [id number] [facility]ITAL[facility]de[facility]
[~2018-04-27 06:58] MED LIST: Buffered Lidocaine 0.9% SYRIN* 5 ML/SYR SYRINGE INTRADERM ONE; Dexamethasone IV* 4 MG/ML 1 ML (4 MG) IV SLOW PU ONE; Famotidine IV* 10 MG/ML 2 ML (20 mg) IV ONE; Ondansetron ODT TAB* 4 MG PO ONE
[2018-04-27] MEDS ORDERED: Famotidine IV* 10 MG/ML 2 ML (20 mg) ONE (07:12)
[2018-04-27] MEDS ORDERED: Clindamycin 900 MG IVPREMIX(* 900 MG/50 ML SDV IV ONE (07:12)
[2018-04-27] MEDS ORDERED: Dexamethasone IV* 4 MG/ML 1 ML (4 MG) ONE (07:12)
[2018-04-27] MEDS ORDERED: Heparin VIAL(*) 5000 UNITS/ML VIAL (FIVE THOUSAND) ONE (07:12)
[2018-04-27] MEDS ORDERED: Ondansetron ODT TAB* 4 MG ONE (07:12)
[2018-04-27] MEDS ORDERED: Lidocaine 2% PF * 5 ML VIAL ONE (08:25)
[2018-04-27] MEDS ORDERED: fentaNYL* 50 MCG/ML 5 ML VIAL (250 MCG VIAL) ONE (08:25)
[2018-04-27] MEDS ORDERED: Midazolam* 1 MG/ML 5 ML VIAL (5 MG) ONE (08:25)
[2018-04-27] MEDS ORDERED: Atracurium* 10 MG/ML 10 ML VIAL ONE (08:25)
[2018-04-27] MEDS ORDERED: Propofol* 10 MG/ML 20 ML BTL IV PUSH ONE (08:25)
[2018-04-27] MEDS ORDERED: Bupivacaine 0.25% SDV* 30 ML ONE (08:49)
[2018-04-27] MEDS ORDERED: fentaNYL* 50 MCG/ML 2 ML VIAL (100 MCG VIAL) ONE (09:46)
[2018-04-27] MEDS ORDERED: EPHEDrine (Pressors)* 50 MG/ML VIAL ONE (09:52)
[2018-04-27] MEDS ORDERED: HYDROmorphone INJ* 1 MG/ML CARPUJECT SYRINGE IV PRN (10:10)
[2018-04-27] MEDS ORDERED: fentaNYL* 50 MCG/ML 2 ML VIAL (100 MCG VIAL) IV PRN (10:10)
[2018-04-27] MEDS ORDERED: Naloxone* 0.4 MG/ML 1 ML VIAL IV PRN (10:10)
[2018-04-27] MEDS ORDERED: Ondansetron INJ* 2 MG/ML VIAL IV PRN (10:10)
[2018-04-27] MEDS ORDERED: DiMENhydriNATE IV* 50 MG/ML VIAL IV PUSH PRN (10:10)
[2018-04-27] MEDS ORDERED: Ondansetron 40 MG VIAL* 2 MG/ML 20 ML VIAL IV PRN (13:46)
[2018-04-27] MEDS ORDERED: HYDROcodone/ACET. 7.5/325 LIQ* 15 ML UDC PO PRN (14:06)
[2018-04-27] MEDS ORDERED: Albuterol HFA INHALER* 8 gm MDI INH PRN (14:10)
[2018-04-27 14:39] LABS: ABS Basophils 0 10^3/ul (0-0.2); ABS Eosinophils 0 10^3/ul (0-0.6); ABS Lymphocytes 0.6 10^3/ul (1.0-4.8); ABS Monocytes 0.1 10^3/ul (0-0.8); ABS Neutrophils 12.1 10^3/ul (1.5-7.7); ABS Nucleated RBC 0 10^3/ul; Eosinophil % 0.1 % (0-6); Hematocrit 33 % (35-47); Hemoglobin 10.9 g/dl (12.0-16.0); Lymphocyte % 4.4 % (25-47); Mean Corpuscular HGB Conc 34 g/dl (31-36); Mean Corpuscular Hemoglobin 29 pg (27-31); Mean Corpuscular Volume 86 fL (80-97); Mean Platelet Volume 8.3 um3 (7.4-10.4); Nucleated Red Blood Cells % 0; Platelet Count 296 10^3/ul (150-450); Red Blood Count 3.76 10^6/ul (4.0-5.4); Red Cell Distribution Width 12 % (10.5-15); White Blood Count 12.9 10^3/ul (3.5-10.8)
[2018-04-27] MEDS: Ketorolac INJ* 30 MG/ML 1 ML VIAL IV SCH ×2 (16:41→19:46)
[2018-04-27] MEDS: HYDROmorphone INJ* 2 MG/ML CARPUJECT SYRINGE IV PRN ×2 (16:44→21:12)
[2018-04-28] MEDS: Ketorolac INJ* 30 MG/ML 1 ML VIAL IV SCH ×2 (02:42→08:31)
[2018-04-28] MEDS: HYDROmorphone INJ* 2 MG/ML CARPUJECT SYRINGE IV PRN (04:39)
[2018-04-28 06:18] LABS: EGFR Non-African American 128.6 (>60)
[2018-04-28 08:26] VITALS: BP 139/63
[2018-04-28] MEDS ORDERED: Hydrochlorothiazide TAB* 25 MG PO SCH (09:00)
[2018-04-28] MEDS ORDERED: Losartan TAB* 25 MG PO SCH (09:00)
[2018-04-28] MEDS ORDERED: Bisoprolol TAB* 5 MG PO SCH (09:00)
--- NOTE | 2018-04-28 09:03 | PN ---
Progress Note - Progress Note Date of Service: 04/28/18 Note: Surgery Ms. You denies complaints except a persistent need to clear throat. Vital Signs 04/27/18 04/27/18 04/27/18 14:02 14:03 14:04 Temperature 97.7 F Pulse Rate 95 97 Respiratory 16 Rate Blood Pressure 137/85 (mmHg) O2 Sat by Pulse 98 100 Oximetry 04/27/18 04/27/18 04/27/18 14:05 14:07 14:15 Temperature Pulse Rate 88 85 Respiratory 18 14 Rate Blood Pressure 121/58 127/90 (mmHg) O2 Sat by Pulse 100 100 Oximetry 04/27/18 04/27/18 04/27/18 14:20 14:25 14:30 Temperature Pulse Rate 77 70 69 Respiratory 14 17 11 Rate Blood Pressure 142/97 150/73 146/55 (mmHg) O2 Sat by Pulse 100 99 99 Oximetry 04/27/18 04/27/18 04/27/18 14:45 15:00 15:15 Temperature Pulse Rate 67 68 63 Respiratory 19 16 16 Rate Blood Pressure 150/67 142/56 146/68 (mmHg) O2 Sat by Pulse 99 99 100 Oximetry 04/27/18 04/27/18 04/27/18 15:35 15:40 16:42 Temperature 98.3 F 97.5 F Pulse Rate 63 67 Respiratory 16 16 14 Rate Blood Pressure 141/57 147/57 (mmHg) O2 Sat by Pulse 100 100 Oximetry 04/27/18 04/27/18 04/27/18 16:44 17:42 19:26 Temperature 97.8 F 97.9 F Pulse Rate 64 84 Respiratory 16 14 16 Rate Blood Pressure 133/62 139/64 (mmHg) O2 Sat by Pulse 98 98 Oximetry 04/27/18 04/27/18 04/27/18 19:46 21:12 21:46 Temperature 97.6 F Pulse Rate 68 64 Respiratory 16 16 Rate Blood Pressure (mmHg) O2 Sat by Pulse 97 Oximetry 04/27/18 04/27/18 04/27/18 21:51 22:15 23:09 Temperature 98.0 F Pulse Rate 64 Respiratory 16 16 16 Rate Blood Pressure 136/54 133/53 (mmHg) O2 Sat by Pulse 97 Oximetry 04/28/18 04/28/18 04/28/18 03:15 04:35 04:39 Temperature 98.5 F Pulse Rate 103 78 Respiratory 16 16 Rate Blood Pressure 124/65 (mmHg) O2 Sat by Pulse 97 Oximetry 04/28/18 04/28/18 04/28/18 04:57 06:10 07:25 Temperature 98.0 F Pulse Rate 106 Respiratory 16 18 Rate Blood Pressure 139/63 (mmHg) O2 Sat by Pulse 97 92 Oximetry 04/28/18 07:27 Temperature Pulse Rate Respiratory 16 Rate Blood Pressure (mmHg) O2 Sat by Pulse 97 Oximetry Incision: clean and dry, minimal swelling Voice: clear, strong Labs: Ca++: 9.1-->8.9 Intake & Output 04/27/18 04/28/18 04/28/18 22:59 06:59 14:59 Intake Total 0 980 Output Total 600 300 Balance -600 680 Intake: IV Fluids 980 LR 980 Oral 0 0 Output: Urine 400 300 Story 200 Other: # Bowel Movements 0 # Voids 1 Laboratory Results - last 24 hr 04/27/18 04/27/18 04/28/18 14:28 14:28 02:14 WBC 12.9 H RBC 3.76 L Hgb 10.9 L Hct 33 L MCV 86 MCH 29 MCHC 34 RDW 12 Plt Count 296 MPV 8.3 Neut % (Auto) 94.1 H Lymph % (Auto) 4.4 L [place] % (Auto) 1.1 Eos % (Auto) 0.1 Baso % (Auto) 0.3 Absolute Neuts (auto) 12.1 H Absolute Lymphs (auto) 0.6 L Absolute Monos (auto) 0.1 Absolute Eos (auto) 0 Absolute Basos (auto) 0 Absolute Nucleated RBC 0 Nucleated RBC % 0 Sodium Potassium Chloride Carbon Dioxide Anion Gap BUN Creatinine Est GFR ( Amer) Est GFR (Non-Af Amer) BUN/Creatinine Ratio Glucose Calcium 9.1 9.1 Total Bilirubin AST ALT Alkaline Phosphatase Total Protein Albumin Globulin Albumin/Globulin Ratio 04/28/18 05:37 WBC RBC Hgb Hct MCV MCH MCHC RDW Plt Count MPV Neut % (Auto) Lymph % (Auto) [place] % (Auto) Eos % (Auto) Baso % (Auto) Absolute Neuts (auto) Absolute Lymphs (auto) Absolute Monos (auto) Absolute Eos (auto) Absolute Basos (auto) Absolute Nucleated RBC Nucleated RBC % Sodium 140 Potassium 3.7 Chloride 102 Carbon Dioxide 30 Anion Gap 8 BUN 17 Creatinine 0.50 L Est GFR ( Amer) 165.4 Est GFR (Non-Af Amer) 128.6 BUN/Creatinine Ratio 34.0 H Glucose 167 H Calcium 8.9 Total Bilirubin 0.40 AST 17 ALT 21 Alkaline Phosphatase 63 Total Protein 5.7 L Albumin 3.3 Globulin 2.4 Albumin/Globulin Ratio 1.4 A/P: POD#1 s/p total thyroidectomy; doing well, can go home; will take synthroid as prescribed by Dr. Moise. Lashawn
--- NOTE | 2018-04-28 09:47 | OP ---
CC: Dr. Fidel Moise; Dr. Sharon Galvan * DATE OF OPERATION: 04/27/18 - ROOM #335 DATE OF : 63 SURGEON: Tawana Morgan MD. FLOORPERSON: Trisha Licona, and ____ [employer] student. PRE-OP DIAGNOSIS: Thyroid cancer. POST-OP DIAGNOSIS: Thyroid cancer. OPERATIVE PROCEDURE: Bilateral total thyroidectomy. INDICATIONS: Ms. You is a 53-year-old woman with recently diagnosed thyroid cancer, who was also found to have pulmonary mets prompting the plan for bilateral total thyroidectomy. DESCRIPTION OF PROCEDURE: She was brought to the operating room, placed on the OR table in the supine position, and given general anesthesia. The neck was prepped and draped in the usual sterile fashion. After infiltrating with local anesthetic, an incision was made along the line that had been marked preoperatively. Subcutaneous tissue was divided with electrocautery through the platysma muscle and then flaps were developed superiorly to the thyroid notch and inferiorly to the sternal notch. The strap muscles were identified and attention was turned first to the right side. Here with some difficulty, the strap muscles were retracted laterally over the gland. It was difficult because the gland was somewhat sticky to the strap muscles; however, dissection was begun in the medial portion of the upper pole and individual vessels that approached the gland were divided between ligature and clip until the upper pole was relatively free. Attention was turned to the inferior pole where individual vessels were isolated and divided with the LigaSure. This was made difficult by the large size of the gland and its multiple nodules. Attention was turned to the middle portion of the gland where using a blunt dissection, the recurrent laryngeal nerve was identified and noted to be intact through the case and ultimately the inferior pole parathyroid was also identified and noted to be intact through the case. Both superiorly and inferiorly, there were several nodules that appeared to be attached to the gland consistent with lymph nodes. These were included with the specimen. Once the right side could be elevated off the trachea, it was dissected free from the trachea using electrocautery. It was noted that there was a small pyramidal lobe. This was included with the specimen as well. The attention was then turned to the left side. Here, the strap muscles were retracted laterally; however, them from the gland proved very difficult and progress to mobilize the gland from the strap muscles was tedious; however, the medial portion of the upper pole could be visualized. Dissection was begun here to isolate vessels that approached the gland. This was done meticulously and it was noted that there were multiple nodules, again some of which were consistent with lymph nodes. Attention was then turned to the inferior pole where again its large size made it difficult to isolate, but ultimately individual vessels and tissue that approached the gland were divided with the LigaSure. Attention was then turned to the middle portion of the bland. It was recognized that the gland extended very far posteriorly wrapping around the trachea and more laterally with multiple nodules. Very slowly, individual vessels and small amounts of tissue that approached the gland were dissected free from the gland using a combination of clips and LigaSure. It turned out that the upper pole had been completely mobilized, so we went back to the upper pole to improve the mobility there and similarly it was recognized that the lower pole had been completely mobilized, so attempts were made to continue mobilizing this until it could be elevated well enough to see in the retrothyroidal area and identify the recurrent laryngeal nerve. After returning to the upper pole and taking down some more tissue away from the very lobulated thyroid gland, ultimately what turned out to be multiple nodules associated with thyroid gland were mobilized and divided from what was thought to be trachea, but turned to be firm portion of the thyroid gland. The mobilized specimen including the right lobe was handed off after it had been divided from the remaining tissue. Then, attention was turned to again the upper pole of the remaining thyroid tissue and using primarily blunt dissection and the LigaSure for dividing tissue, it was continued to be mobilized. It should be mentioned that prior to dividing the multiple lobules from the left side of the gland, there was an episode of bleeding from avulsed vessel quite superiorly. This was ultimately controlled with a clip, but there was probably 100 to 150 cc of blood loss during the search for this vessel. So, the residual thyroid gland was mobilized using blunt dissection and the LigaSure until it could be elevated off the trachea preserving a structure that was consistent with the recurrent laryngeal nerve and fatty tissue that was consistent with fat pad overlying the parathyroid was preserved. The gland was from the trachea using electrocautery and handed off as a second specimen. The wound was inspected for hemostasis, which was achieved with a combination of clips and Surgicel and once hemostasis appeared adequate, closure was accomplished. I should mention that during the episode of bleeding in this case, I did have to extend the incision a little bit , so closure was little bit longer than usual. The strap muscles were reapproximated with 3-0 Vicryl and then the platysma muscle was reapproximated with 4-0 Vicryl and the skin was closed with 4-0 Prolene in a subcuticular fashion. Steri-Strips and a dry fluffy dressing were applied. All sponge and instrument counts were correct. The patient tolerated the procedure well and was transferred to Recovery in a stable condition. [id number]/[facility] #: [id number] BHARAT
--- NOTE | 2018-04-28 12:43 | DS ---
DISCHARGE SUMMARY: DATE OF ADMISSION: 04/27/18 DATE OF DISCHARGE: 04/28/18 ADMISSION DIAGNOSIS: Thyroid cancer. DISCHARGE DIAGNOSIS: Thyroid cancer. PROCEDURES DURING HOSPITALIZATION: Included total thyroidectomy done on the date of admission. HOSPITAL COURSE: Please see the admission history and physical for details of findings at the time of admission. She underwent surgery and then was admitted postoperatively for observation of her calcium level. She had labs that reflected stable calcium through the night and in the morning feeling comfortable enough to go home. She will be discharged to home with instructions to follow up as an outpatient. Please see discharge papers for additional information. [id number]/[facility] #: [id number] BHARAT
== END 2018-04-28 10:00 | disposition home or self-care (01) ==
LOC: OR 06:58 → EDSTATUS 08:45 → SSU 14:00
PROVIDERS: ADMIT Surgery; ATTEND Surgery
PROC: 0GBJ0ZZ Excision of Thyroid Gland Isthmus, Open Approach (ICD-10-PCS; 2018-04-27)
PROC: 0GTK0ZZ Resection of Thyroid Gland, Open Approach (ICD-10-PCS; principal; 2018-04-27 08:45)
DX: C73 Malignant neoplasm of thyroid gland (principal); I10 Essential (primary) hypertension
CPT/HCPCS: 36415; 80053; 82310; 85025; 88307; A9270-GY; G0378; J1100; J1170; J1644; J1885; J2250; J2405; J2704; J3010

== ENCOUNTER 2021-01-26 09:52 | Observation (INO) ==
[~2021-01-26 09:52] MED LIST changes: -Buffered Lidocaine 0.9% SYRIN* 5 ML/SYR SYRINGE INTRADERM ONE; +Buffered Lidocaine 1% SYRIN 1 ml INTRADERM ONE; -Dexamethasone IV* 4 MG/ML 1 ML (4 MG) IV SLOW PU ONE; +Famotidine IV 10 MG/ML 2 ml VIAL (20 mg) IV ONE; -Famotidine IV* 10 MG/ML 2 ML (20 mg) IV ONE; +Lactated Ringers 1000 ml BAG 1,000 ML IV SCH; +Levalbuterol 0.63MG/3ML NEB UNIT OF USE INH ONE; -Ondansetron ODT TAB* 4 MG PO ONE
[2021-01-26] MEDS ORDERED: Clindamycin 900 MG/D5W BAG 900 MG/50 ML BAG IVPB ONE (10:08)
[2021-01-26] MEDS ORDERED: Levalbuterol 0.63MG/3ML NEB UNIT OF USE INH ONE (10:08)
[2021-01-26] MEDS ORDERED: Famotidine IV 10 MG/ML 2 ml VIAL (20 mg) ONE (10:08)
[2021-01-26] MEDS ORDERED: ROPIVACAINE 5 MG/ML 30 ML BTL (0.5%) ONE (10:58)
[2021-01-26] MEDS ORDERED: Midazolam 5 mg/5 ml VIAL 1 mg/ml 5 ml VIAL (5 mg) ONE (11:17)
[2021-01-26] MEDS ORDERED: Bupivacaine 0.5% SDV PF 30ML VIAL ONE (11:22)
[2021-01-26] MEDS ORDERED: Phenylephrine 40 mcg/mL 10mL (400mcg) SYRINGE ONE (12:18)
[2021-01-26] MEDS ORDERED: Phenylephrine IV 10 MG/ML 1 ml VIAL ONE (12:21)
[2021-01-26] MEDS ORDERED: Propofol 10 MG/ML 20 ML BTL ONE (14:26)
[2021-01-26] MEDS ORDERED: Ondansetron ODT 4 mg TAB 4 MG TAB PO PRN (15:13)
[2021-01-26] MEDS ORDERED: Magnesium Hydroxide LIQ 30 ML UDC PO PRN (15:13)
[2021-01-26] MEDS ORDERED: diPHENhydraMINE 25 mg TAB PO PRN (15:13)
[2021-01-26] MEDS ORDERED: Ondansetron 4 mg VIAL 2 MG/ML 2 ml VIAL IV PRN (15:13)
[2021-01-26] MEDS ORDERED: diPHENhydraMINE IV 50 MG/ML 1 ml VIAL (BENADRYL) IV PRN (15:13)
[2021-01-26] MEDS ORDERED: Lactulose 30 ml UDC PO PRN (15:13)
[2021-01-26] MEDS ORDERED: oxyCODONE/Acetamin 5/325 mg TAB PO PRN (15:13)
[2021-01-26] MEDS ORDERED: Morphine 2 MG/ML SYRINGE IV PRN (15:13)
[2021-01-26] MEDS: Lactated Ringers 1000 ml BAG 1,000 ML IV SCH (16:35)
[2021-01-26] MEDS ORDERED: Albuterol HFA INHALER 8 gm MDI INH PRN (17:04)
[2021-01-26] MEDS: Magnesium Hydroxide LIQ 30 ML UDC PO SCH (21:25)
[2021-01-26] MEDS: Clindamycin 600 MG/D5W BAG 600 MG/50 ML BAG IV SCH (21:26)
[2021-01-27] MEDS: Lactated Ringers 1000 ml BAG 1,000 ML IV SCH (03:08)
[2021-01-27] MEDS: Clindamycin 600 MG/D5W BAG 600 MG/50 ML BAG IV SCH ×2 (05:16→12:41)
[2021-01-27 05:57] LABS: Hematocrit 26 % (35-47); Hemoglobin 9.2 g/dL (12.0-16.0); Mean Platelet Volume 8.1 fL (7.4-10.4); Platelet Count 149 10^3/uL (150-450)
[2021-01-27 06:15] LABS: BUN/Creatinine Ratio 26.3 (8-20); Calcium 8.4 mg/dL (8.6-10.3); EGFR African American 132.8 (>60); EGFR Non-African American 109.7 (>60); Potassium 4.2 mmol/L (3.5-5.0)
[2021-01-27] MEDS ORDERED: Buprenorphine 10 MCG PATCH(NF) 10 MCG/HR PATCH (10 MG TOTAL) TRANSDERM SCH (09:00)
[2021-01-27] MEDS ORDERED: Vitamin THERAPEUTIC TAB PO SCH (09:00)
[2021-01-27] MEDS: Magnesium Hydroxide LIQ 30 ML UDC PO SCH (10:12)
[2021-01-27 11:56] VITALS: BP 110/61
== END 2021-01-27 13:50 | disposition home or self-care (01) ==
LOC: OR 09:52 → SSU 09:52
PROVIDERS: ADMIT Orthopaedic Surgery Adult Reconstructive Orthopaedic Surgery; ATTEND Orthopaedic Surgery Adult Reconstructive Orthopaedic Surgery